=== PATIENT | male | born 1965 ===

== ENCOUNTER 2021-10-06 12:53 | Observation (INO) | payer BC ==
[~2021-10-06 12:53] MED LIST: Bupivacaine 0.5% 30 ML SDV ONE; ceFAZolin 1 GM Vial ONE; cefOXitin 2 GM in Premix Bag 1 BAG IV ONE
[2021-10-06] MEDS ORDERED: cefOXitin 2 GM Vial IV ONE (12:54)
[2021-10-06] MEDS ORDERED: Lactated Ringers 1,000 ML IV SCH ×2 (13:00→15:00)
[2021-10-06] MEDS ORDERED: Acetaminophen/HYDROcodone 325-5 MG Tab PO PRN (15:01)
[2021-10-06] MEDS ORDERED: Ibuprofen 400 MG Tab PO PRN (15:15)
[2021-10-06] MEDS: traMADol 50 MG Tab PO PRN (16:13)
[2021-10-06] MEDS: Morphine Sulfate in 0.9 % NaCl 50 MG/50 ML PCA Bag IV SCH (17:04)
[2021-10-06] MEDS: cefOXitin 1 GM in Premix Bag 1 BAG IV SCH (19:33)
[2021-10-07] MEDS: cefOXitin 1 GM in Premix Bag 1 BAG IV SCH ×2 (01:14→06:59)
[2021-10-07] MEDS: traMADol 50 MG Tab PO PRN (04:23)
== END 2021-10-07 10:45 | disposition home or self-care (01) ==
LOC: MW.SDS 12:53 → MW.MS 15:04
PROVIDERS: ADMIT Surgery; ATTEND Surgery
DX: K35.30 Acute appendicitis with localized peritonitis, without perforation or gangrene (principal); K21.9 Gastro-esophageal reflux disease without esophagitis; K57.32 Diverticulitis of large intestine without perforation or abscess without bleeding; Z82.49 Family history of ischemic heart disease and other diseases of the circulatory system; Z79.899 Other long term (current) drug therapy; Z98.890 Other specified postprocedural states; Z01.812 Encounter for preprocedural laboratory examination; Z20.822 Contact with and (suspected) exposure to COVID-19
CPT/HCPCS: 44970; 87635; 96365; 96376; A9270; G0378; J0694; J2270; J3490; J7030; J7120; 00840; J0690; U0002